=== PATIENT | male | born 1945 | race Caucasian/White ===

== ENCOUNTER 2021-01-16 11:57 | Emergency (ER) | payer OTHER ==
[~2021-01-16] VITALS: Ht 180.3 cm; Wt 78.0 kg
[2021-01-16] MEDS ORDERED: ASPIRIN 325MG EC TABLET PO ONE (12:30)
[2021-01-16] MEDS ORDERED: ATORVASTATIN CALCIUM 40MG TABLET PO SCH (12:30)
[2021-01-16 12:31] LABS: BASOPHILS % 0.9 % (0.0-2.0); EOSINOPHILS % 0.2 % (0.0-5.0); HEMATOCRIT. 42.6 % (42.0-52.0); HEMOGLOBIN. 14.9 g/dL (14.0-18.0); LYMPHOCYTES % 7.5 % (20.0-50.0); MEAN CORPUSCULAR HEMOGLOBIN 32.4 pg (28.0-32.0); MEAN CORPUSCULAR VOLUME 92.9 fL (80.0-94.0); MEAN PLATELET VOLUME 7.9 fl (7.4-10.4); MONOCYTES % 5.4 % (2.0-8.0); PLATELET 247 x1000/uL (130-400); RED BLOOD CELL COUNT 4.59 mill/uL (4.7-6.1); RED CELL DISTRIBUTION WIDTH 13.8 % (11.6-14.6)
[2021-01-16 12:36] LABS: CHLORIDE 104 mEq/L (98-107)
[2021-01-16 12:40] LABS: ETHANOL BLOOD < 10 mg/dL
[2021-01-16 12:42] LABS: PROTHROMBIN TIME 11.1 sec (9.6-11.0)
[2021-01-16 12:43] LABS: LDL CHOLESTEROL 152 mg/dL (5-100)
[2021-01-16 12:57] LABS: CLARITY URINE CLEAR (CLEAR); COLOR URINE YELLOW (YELLOW); KETONES URINE NEGATIVE (NEGATIVE); LEUKOCYTE ESTERASE URINE NEGATIVE (NEGATIVE); NITRITE URINE NEGATIVE (NEGATIVE); OCCULT BLOOD URINE 2+ (NEGATIVE); PH URINE 7.5 (4.5-8.0); PROTEIN URINE NEGATIVE (NEGATIVE); SPECIFIC GRAVITY URINE 1.025 (1.005-1.030); UROBILINOGEN URINE 0.2 E.U./dL (0.2-1.0)
[2021-01-16 13:13] LABS: *AMPHETAMINES SCREEN URINE NEGATIVE (NEGATIVE); *BARBITURATES SCREEN URINE NEGATIVE (NEGATIVE); *BENZODIAZEPINES SCREEN URINE NEGATIVE (NEGATIVE); *COCAINE SCREEN URINE NEGATIVE (NEGATIVE)
[2021-01-16 13:14] LABS: CANNABINOID URINE SCREEN NEGATIVE (NEGATIVE); METHADONE URINE SCREEN NEGATIVE (NEGATIVE); OPIATES URINE SCREEN NEGATIVE (NEGATIVE); PHENCYCLIDINE URINE SCREEN NEGATIVE (NEGATIVE)
[2021-01-16] MEDS ORDERED: IOHEXOL-350 100 ML BOTTLE ONE (13:57)
[2021-01-16 15:22] VITALS: BP 168/80
== END 2021-01-16 17:07 | disposition short-term general hospital (02) ==
LOC: ER 12:09
DX: I63.9 Cerebral infarction, unspecified (principal); I10 Essential (primary) hypertension; Z20.822 Contact with and (suspected) exposure to COVID-19
CPT/HCPCS: 36415; 70450; 70496; 70498; 71045; 80053; 80305; 80320; 81003; 82962; 83721; 84484; 85025; 85610; 87426; 93005; 99285; Q9967; G0480